=== PATIENT | female | born 1985 | race Caucasian/White ===

== ENCOUNTER 2021-10-14 11:12 | Emergency (ER) | payer OTHER, SELFPAY ==
--- NOTE | ~2021-10-14 | US_ITS ---
EXAMINATION: US ABDOMEN LIMITED CLINICAL INFORMATION: Epigastric pain. Abnormal liver function tests.. COMPARISON: None TECHNIQUE: Real-time imaging of the right upper quadrant abdominal viscera. FINDINGS: PANCREAS: Well visualized. LIVER: Normal. The liver is normal in size. The liver contour is normal. Parenchymal echogenicity is normal. No focal hepatic lesion. There is no intrahepatic biliary duct dilatation seen. GALLBLADDER: The gallbladder is upper normal in size. There are gallstones. The gallbladder wall is upper normal in thickness measuring 3 to 5 mm. There is no gallbladder wall edema. There is no pericholecystic fluid. The biomedical engineering technologist does not report that the patient is tender over the gallbladder. COMMON BILE DUCT: Normal in caliber measuring 0.5 cm in diameter. RIGHT KIDNEY: Normal. No hydronephrosis. No renal calculi or focal parenchymal lesions. The kidney measures 10 cm in maximum dimension. FREE FLUID: None. US/US abdomen limited IMPRESSION: Upper normal-size gallbladder and gallstones. Nonvisualization of the pancreas.
[2021-10-14 11:39] VITALS: BP 108/63; PULSE 75; RESP 18; TEMP 37; O2SAT 100; BMI 39.4
[2021-10-14 12:00] LABS: MANUAL DIFF FLAG NO
[2021-10-14 12:02] LABS: Basophils Percent Auto 0.3 % (0-2); Eosinophils Percent Auto 0.4 % (0-4); Hematocrit 38.4 % (37.0-47.0); Hemoglobin 12.4 g/dl (12.0-16.0); Imm Gran Abs Auto 0.04 X10*3/uL (0.00-0.03); Imm Gran Pct Auto 0.4 % (0.0-0.4); Lymphocytes Absolute Auto 1.4 X10*3/uL (1.2-4.9); Lymphocytes Percent Auto 13.7 % (20-40); Mean Corpuscular HGB Conc 32.3 g/dl (31.0-35.0); Mean Corpuscular Hemoglobin 26.7 pg (27.0-33.0); Mean Corpuscular Volume 82.6 fL (80.0-98.0); Mean Platelet Volume 11.4 fL (9.4-12.3); Monocytes Absolute Auto 0.6 X10*3/uL (0.1-1.2); Monocytes Percent Auto 5.8 % (2-11); Neutrophils Absolute Auto 7.9 x10*3/uL (2.0-8.3); Neutrophils Percent Auto 79.4 % (45-73); Platelet Count 249 X10*3/uL (160-400); Red Blood Count 4.65 X10*6/uL (4.20-5.50); Red Cell Distribution Width 13.9 % (11.0-16.0)
[2021-10-14 12:13] LABS: Appearance Urine HAZY; Glucose Urine UA NEG (NEG); Leukocyte Esterase Urine NEG (NEG); Nitrite Urine NEG (NEG); PH 5.5 (5.0-8.0); Specific Gravity - Urine >= 1.030 (1.005-1.025); Urine Blood NEG (NEG); Urine Ketones 5 MG/DL (NEG); Urine Protein NEG (NEG-TRACE)
[2021-10-14 12:14] LABS: Color Urine YELLOW; UPreg QC Valid YES; Urine Pregnancy NEGATIVE (NEGATIVE)
[2021-10-14 12:24] LABS: Alanine Aminotransferase 52 U/L (0-31); Albumin Level 4.1 g/dL (3.5-5.0); Alkaline Phosphatase 100 U/L (39-117); Anion Gap 11 (12-20); Aspartate Amino Transferase 55 U/L (5-31); Bilirubin Total 1.2 mg/dL (0.0-1.0); Blood Urea Nitrogen 9 mg/dL (9-16); Calcium 9.4 mg/dL (8.4-10.2); Carbon Dioxide 25 mmol/L (22-29); Chloride 108 mmol/L (96-108); Creatinine Clr Calc Pharmacy 109.7; Estimated Glomerular Filt Rate > 60; Glucose Random 89 mg/dL (60-115); Lipase 23 U/L (8-78); Potassium 3.7 mmol/L (3.3-5.1); Sodium 140 mmol/L (135-145); Total Protein 7.3 g/dL (6.5-8.0)
--- NOTE | 2021-10-14 12:29 | ED_ITS ---
HPI - Abdominal Pain General Chief Complaint: Abdominal Pain Stated Complaint: abd pain Time Seen by Provider: 10/14/21 12:24 Source: patient Mode of arrival: ambulatory Limitations: no limitations History of Present Illness HPI narrative: 35 y/o female with history of hypothyroidism presents to the ER with epigastric abdominal pain for the last 3 months. She reports intermittent nausea when the pain is severe but no vomiting or diarrhea. She reports nothing makes the pain worse or better it is mostly constant. Intermittently it wakes her up at night. She denies any radiation of the pain. She denies eating any spicy foods, using NSAIDs regularly, or alcohol use. No new medications. MD elicited complaint: abdominal pain Pertinent past history: none Onset (ago): month(s) (3) Pain Consistency: constant Location: epigastric Severity: severe Quality: aching, fullness and burning Radiation: none Migration to: no migration Exacerbating factors: nothing Relieving factors: nothing Associated symptoms: nausea Related Data Previous Rx's Medication Instructions Recorded pantoprazole 40 mg tablet,delayed 40 mg PO DAILY #30 tab 10/14/21 release (Protonix) Allergies Allergy/AdvReac Type Severity Reaction Status Date / Time No Known Allergies Allergy Verified 10/14/21 11:39 Review of Systems Review of Systems Constitutional: No Fever, No Chills ENT/Mouth: No sore throat, No Rhinorrhea, No Swallowing Difficulty Cardiovascular: No Chest Pain, No SOB Respiratory: No Cough, No Sputum, No Wheezing, No dyspnea Gastrointestinal: +Nausea, No Vomiting, No Diarrhea, + abdominal Pain, No Hematochezia, No Melena Genitourinary: No Dysuria, No Urinary Frequency, No Hematuria Musculoskeletal: No joint pain, No Myalgias Skin: No Skin Lesions, No rash Neuro: No Weakness, No Numbness, No Dizziness, No Headache Psych: + Anxiety/Panic Heme/Lymph: No Bruising, No Lymphadenopathy Physical Exam Verdana 4l Vital Signs: Verdana 4d Verdana 4d Vital Signs: Verdana 4d Verdana 4Bd Last Vital Signs Verdana 4d Recovery Auditor New 4d Recovery Auditor New 4d Temp 98.7 F 10/14/21 12:45 Recovery Auditor New 4d Pulse 81 10/14/21 12:45 Recovery Auditor New 4d Resp 20 10/14/21 12:45 BP 118/64 10/14/21 12:45 Pulse Ox 100 10/14/21 12:45 BMI result Body Mass Index 39.4 Appearance: Alert. Oriented X3. No acute distress. Eyes: Pupils equal, round and reactive to light. ENT: Pharynx normal. Neck: Normal inspection. Neck supple. CVS: Normal heart rate and rhythm. Pulses normal. Respiratory: No respiratory distress. Breath sounds normal. Abdomen: Soft with mild epigastric and RUQ tenderness, no rebound or guarding. +BS x4 Skin: Skin warm and dry. Normal skin color. Normal skin turgor. No rashes. Extremities: No lower extremity edema. Neuro: Oriented X 3. No motor deficit. No sensory deficit. Course Course Course Narrative: 35 y/o female presenting with epigastric abdominal pain x3 months. Labs showing some mild transaminitis and bilirubin 1.2, normal lipase. She has some RUQ tenderness. Will get RUQ U/S. Suspect gastritis vs PUD. No evidence of GI bleeding. Will give GI cocktail and reassess. Reevaluation(s) Reevaluation #1: Pain improved, patient sleeping. When awoken she reports her pain is resolved. Her ultrasound did show some gallbladder stones without any abnormal wall thickening. Her CBD is normal. Will refer to both General Surgery and GI. Will start on PPI and give diet for PUD/gastritis. Patient agrees with plan. Stable for d/c home. MDM - Abdominal Pain Lab Data Result diagrams: 10/14/21 11:54 10/14/21 11:54 Labs: Lab Results 10/14/21 10/14/21 10/14/21 Range/Units 11:54 11:54 11:56 WBC 10.0 (4.8-10.8) X10*3/uL RBC 4.65 (4.20-5.50) X10*6/uL Hgb 12.4 (12.0-16.0) g/dl Hct 38.4 (37.0-47.0) % MCV 82.6 (80.0-98.0) fL MCH 26.7 L (27.0-33.0) pg MCHC 32.3 (31.0-35.0) g/dl RDW 13.9 (11.0-16.0) % Plt Count 249 (160-400) X10*3/uL MPV 11.4 (9.4-12.3) fL Immature Gran % (Auto) 0.4 (0.0-0.4) % Neut % (Auto) 79.4 H (45-73) % Lymph % (Auto) 13.7 L (20-40) % [place] % (Auto) 5.8 (2-11) % Eos % (Auto) 0.4 (0-4) % Baso % (Auto) 0.3 (0-2) % Lymph # (Auto) 1.4 (1.2-4.9) X10*3/uL [place] # (Auto) 0.6 (0.1-1.2) X10*3/uL Eos # (Auto) 0.0 (0.0-0.4) X10*3/uL Baso # (Auto) 0.0 (0.0-0.2) X10*3/uL Abs Immat Gran (auto) 0.04 H (0.00-0.03) X10*3/uL Absolute Neuts (auto) 7.9 (2.0-8.3) x10*3/uL Absolute Nucleated RBC 0.000 (0.0-0.012) X10*3/uL Nucleated RBC % (auto) 0.0 (0.0-0.2) /100WBC Sodium 140 (135-145) mmol/L Potassium 3.7 (3.3-5.1) mmol/L Chloride 108 (96-108) mmol/L Carbon Dioxide 25 (22-29) mmol/L Anion Gap 11 L (12-20) BUN 9 (9-16) mg/dL Creatinine 0.85 (0.5-1.4) mg/dL Estim Creat Clear Calc 109.7 Estimated GFR > 60 Random Glucose 89 (60-115) mg/dL Calcium 9.4 (8.4-10.2) mg/dL Total Bilirubin 1.2 H (0.0-1.0) mg/dL AST 55 H (5-31) U/L ALT 52 H (0-31) U/L Alkaline Phosphatase 100 (39-117) U/L Total Protein 7.3 (6.5-8.0) g/dL Albumin 4.1 (3.5-5.0) g/dL Lipase 23 (8-78) U/L Urine Color Urine Appearance Urine pH (5.0-8.0) Ur Specific [place] (1.005-1.025) Urine Protein (NEG-TRACE) MG/DL Urine Glucose (UA) (NEG) MG/DL Urine Ketones (NEG) MG/DL Urine Blood (NEG) Urine Nitrite (NEG) Ur Leukocyte Esterase (NEG) Urine Test NEGATIVE (NEGATIVE) 10/14/21 Range/Units 11:56 WBC (4.8-10.8) X10*3/uL RBC (4.20-5.50) X10*6/uL Hgb (12.0-16.0) g/dl Hct (37.0-47.0) % MCV (80.0-98.0) fL MCH (27.0-33.0) pg MCHC (31.0-35.0) g/dl RDW (11.0-16.0) % Plt Count (160-400) X10*3/uL MPV (9.4-12.3) fL Immature Gran % (Auto) (0.0-0.4) % Neut % (Auto) (45-73) % Lymph % (Auto) (20-40) % [place] % (Auto) (2-11) % Eos % (Auto) (0-4) % Baso % (Auto) (0-2) % Lymph # (Auto) (1.2-4.9) X10*3/uL [place] # (Auto) (0.1-1.2) X10*3/uL Eos # (Auto) (0.0-0.4) X10*3/uL Baso # (Auto) (0.0-0.2) X10*3/uL Abs Immat Gran (auto) (0.00-0.03) X10*3/uL Absolute Neuts (auto) (2.0-8.3) x10*3/uL Absolute Nucleated RBC (0.0-0.012) X10*3/uL Nucleated RBC % (auto) (0.0-0.2) /100WBC Sodium (135-145) mmol/L Potassium (3.3-5.1) mmol/L Chloride (96-108) mmol/L Carbon Dioxide (22-29) mmol/L Anion Gap (12-20) BUN (9-16) mg/dL Creatinine (0.5-1.4) mg/dL Estim Creat Clear Calc Estimated GFR Random Glucose (60-115) mg/dL Calcium (8.4-10.2) mg/dL Total Bilirubin (0.0-1.0) mg/dL AST (5-31) U/L ALT (0-31) U/L Alkaline Phosphatase (39-117) U/L Total Protein (6.5-8.0) g/dL Albumin (3.5-5.0) g/dL Lipase (8-78) U/L Urine Color YELLOW Urine Appearance HAZY Urine pH 5.5 (5.0-8.0) Ur Specific [place] >= 1.030 H (1.005-1.025) Urine Protein NEG (NEG-TRACE) MG/DL Urine Glucose (UA) NEG (NEG) MG/DL Urine Ketones 5 (NEG) MG/DL Urine Blood NEG (NEG) Urine Nitrite NEG (NEG) Ur Leukocyte Esterase NEG (NEG) Urine Test (NEGATIVE) Discharge Plan Discharge Clinical Impression: Gastritis Patient Disposition: Home, Self-Care Instructions: Gastritis (DC), Gallstones (ED), Diet for Stomach Ulcers and Gastritis (ED) Additional Instructions: Take the prescribed medication each morning. Avoid acidic and spicy foods. Avoid large meals and eating right before bed. Take TUMS or Pepto Bismol as needed Follow up with GI and Surgery - name and numbers below If you develop new or worsening symptoms call 911 or come back to the ER for further evaluation. Prescriptions: New pantoprazole [Protonix] 40 mg tablet,delayed release (DR/EC) 40 mg PO DAILY Qty: 30 0RF Referrals: Patrick Judge MD [Physician] - 2 days (epigastric pain x3 months) Esteban Cabrera MD [Physician] - 1 week (gallstones, epigastric pain) Stand Alone Forms: Work/School Release Interventions: ED Discharge Assessment Last Done: 10/14/21 15:12 Discharge Date/Time: 10/14/21 15:13 [facility] Past Medical History Medical History (Updated 10/14/21 @ 14:47 by ASTER Gibbs) Thyroid activity decreased Social History Social History Advance Directives: No Advance Directives Information Provided: No
[2021-10-14 12:45] VITALS: BP 118/64; PULSE 81; RESP 20; TEMP 37.1; O2SAT 100
[2021-10-14] MEDS: PHENobarb/Hyoscy/Atropine/Scop 10 ML ELIXIR PO (12:59)
[2021-10-14] MEDS: Lidocaine HCl Viscous 2 % 15 ML SOLUTION MUCOUS MEM (12:59)
[2021-10-14] MEDS: Magnesium Hydrox/Alum Hydrox 30 ML ORAL.SUSP PO (12:59)
[2021-10-14] MEDS: Omeprazole 40 MG CAPSULE.DR PO (12:59)
== END 2021-10-14 15:13 | disposition home or self-care (01) ==
PROVIDERS: Emergency Provider Emergency Medicine Emergency Medical Services; PCP Internal Medicine
DX: K29.70 Gastritis, unspecified, without bleeding (principal); R10.9 Unspecified abdominal pain
CPT/HCPCS: 36415; 76705; 80053; 81003; 81025; 83690; 85025; 99284

== ENCOUNTER 2023-01-09 22:47 | Emergency (ER) | payer OTHER, SELFPAY ==
[2023-01-09 22:54] VITALS: BP 108/65; PULSE 90; RESP 18; TEMP 36.8; O2SAT 98; BMI 39.3
[2023-01-10 02:35] VITALS: BP 107/65; PULSE 78; RESP 14; TEMP 36.8; O2SAT 99
--- NOTE | 2023-01-10 02:58 | ED.ALLEREA ---
HPI - Allergic Reaction General Chief complaint: Allergic Reaction Stated complaint: hives Time Seen by Provider: 01/10/23 02:56 Source: patient Mode of arrival: ambulatory Limitations: no limitations History of Present Illness HPI narrative: no new medications, no new foods, no dew shampoo, or detergents, no recent illness. Itching and rash stared 2 days ago, goes away with benadryl. complaint: hives Onset (ago): hour(s) Symptoms: rash, itching and facial swelling Related Data Previous Rx's Medication Instructions Recorded pantoprazole 40 mg tablet,delayed 40 mg PO DAILY #30 tabs 10/14/21 release (Protonix) diphenhydramine HCl 25 mg capsule 25 mg PO Q6-8H PRN allergic 01/10/23 (Benadryl) reaction #30 caps prednisone 20 mg tablet 60 mg PO DAILY #12 tabs 01/10/23 Allergies Allergy/AdvReac Type Severity Reaction Status Date / Time No Known Allergies Allergy Verified 10/14/21 11:39 Review of Systems Review of Systems: Yes all other systems are reviewed and are negative Allergic/Immunologic: Comments: rash and itching PMFSH Past Medical History Medical History Thyroid activity decreased Social History Social History Advance Directives: No Advance Directives Information Provided: Yes Physical Exam ED Vital Signs: Vital Signs - 24 hr 01/09/23 22:54 01/10/23 02:35 Temperature 98.2 F 98.3 F Pulse Rate 90 78 Respiratory Rate 18 14 Blood Pressure 108/65 107/65 Pulse Oximetry 98 99 Oxygen Delivery Method Room Air Room Air BMI result Body Mass Index 39.3 Const General: healthy appearing Nutritional Appearance: average body habitus Orientation/consciousness: oriented to person and patient oriented x3 Limitations: no limitations HENMT Head: Yes normal to inspection Ears: external ears normal General nose exam: Normal external nose present Mouth: Normal oral and palatal mucosa present and oropharynx normal Throat: Yes posterior oropharynx normal Eyes General: appearance normal, both eyes and all related structures Neck Neck: Yes normal visual inspection Chest Chest palpation & inspection: normal inspection of the chest Resp Auscultation: clear to auscultation bilaterally Cardio Jugular venous distension: no JVD Rate: regular rate Rhythm: regular rhythm Heart sounds: S1 normal heart sound present and S2 normal heart sound present GI Inspection: Yes normal to inspection Palpation (GI): Soft to palpation, nontender and No hepatosplenomegaly present Auscultation: normal bowel sounds General: Yes no CVA tenderness Back/Spine/Pelvis Back: no CVA tenderness Skin Other: generalized hives Neuro General: oriented to person and patient oriented x3 Cranial nerves: Yes CN's II-XII intact bilaterally Motor exam (neuro): 5/5 motor strength present throughout Extrem General: Yes normal to inspection Psych Appearance: grossly normal Course Reevaluation(s) Reevaluation #1: patient with hives of unclear etiology Time: 03:06 Medical Decision Making Differential Diagnosis Differential Diagnoses: The differential diagnosis associated with the presentation includes (urticaria, allergic reaction, viral urticaria) Discharge Plan Discharge Clinical Impression: Allergic reaction, Urticaria Patient Disposition: Home, Self-Care Instructions: Urticaria (ED), General Allergic Reaction (ED) Prescriptions: New prednisone 20 mg tablet 60 mg PO DAILY Qty: 12 0RF diphenhydramine HCl [Benadryl] 25 mg capsule 25 mg PO Q6-8H PRN (Reason: allergic reaction) Qty: 30 0RF No Action pantoprazole [Protonix] 40 mg tablet,delayed release (DR/EC) 40 mg PO DAILY Qty: 30 0RF Referrals: Estrella Leon MD [Primary Care Provider] - 3 days
[2023-01-10] MEDS: predniSONE 20 MG TABLET 60 MG PO (03:31)
== END 2023-01-10 03:36 | disposition home or self-care (01) ==
PROVIDERS: Emergency Provider Emergency Medicine; PCP Internal Medicine
DX: L50.0 Allergic urticaria (principal)
CPT/HCPCS: 99283

== ENCOUNTER 2023-03-06 06:39 | Emergency (ER) | payer OTHER, SELFPAY ==
[2023-03-06 06:41] VITALS: BP 136/77; PULSE 83; RESP 16; TEMP 36; O2SAT 96
[2023-03-06 07:13] VITALS: BMI 40.5
[2023-03-06 07:29] LABS: IDNOW Serial# 08D9AD1C; Strep A Nucleic Acid Negative (Negative)
--- NOTE | 2023-03-06 08:18 | ED.GENADULT ---
HPI - General Adult General Chief complaint: General Medical Stated complaint: possible strep Time Seen by Provider: 03/06/23 08:10 Source: patient Mode of arrival: ambulatory Limitations: no limitations History of Present Illness HPI narrative: 37-year-old female presents to the ER for evaluation of possible strep throat. She states she developed sore throat yesterday with white patches in film on the back of her throat. She gargled with salt water a few times and slept most of the day. She states she woke up at midnight with worsening sore throat, painful swallowing. She has no other symptoms. No known sick contacts. No change in her voice, trouble handling secretions, fever, chills, abdominal pain. complaint: Sore throat Onset (ago): day(s) (1) Location: mouth Radiation: non-radiation Severity: moderate Exacerbating factors: other (Swallowing) Associated symptoms: denies other symptoms Treatments prior to arrival: none Related Data Previous Rx's Medication Instructions Recorded pantoprazole 40 mg tablet,delayed 40 mg PO DAILY #30 tabs 10/14/21 release (Protonix) diphenhydramine HCl 25 mg capsule 25 mg PO Q6-8H PRN allergic 01/10/23 (Benadryl) reaction #30 caps prednisone 20 mg tablet 60 mg PO DAILY #12 tabs 01/10/23 amoxicillin 875 mg-potassium 1 tab PO BID #14 tabs 03/06/23 clavulanate 125 mg tablet Allergies Allergy/AdvReac Type Severity Reaction Status Date / Time No Known Allergies Allergy Verified 03/06/23 07:16 Review of Systems Review of Systems: Yes all other systems are reviewed and are negative PMFSH Past Medical History Medical History Thyroid activity decreased Social History Social History Substance Use Type: Marijuana Physical Exam ED Vital Signs: Vital Signs - 24 hr 03/06/23 06:41 Temperature 96.8 F Pulse Rate 83 Respiratory Rate 16 Blood Pressure 136/77 Pulse Oximetry 96 Oxygen Delivery Method Room Air BMI result Body Mass Index 40.5 Appearance: Alert. Oriented X3. No acute distress. Head: normocephalic, atraumatic. Eyes: Pupils equal, round and reactive to light. ENT: Pharynx normal. + tonsillar swelling or exudates bilaterally, uvula midline. no voice changes. normal TM bilaterally Neck: Normal inspection. Neck supple. No cervical lymphadenopathy appreciated CVS: Normal heart rate and rhythm. Pulses normal. Respiratory: No respiratory distress. Breath sounds normal. Skin: Skin warm and dry. Normal skin color. Normal skin turgor. No rashes. Extremities: No lower extremity edema. No joint swelling. Neuro/psych: Oriented X 3. Grossly normal. Normal speech and cognition. Medical Decision Making Medical Decision Making [facility] Narrative: 37-year-old female presents to the ER for evaluation of possible sore throat. She has sore throat, painful swallowing, white patches on her throat. Her exam is consistent with strep pharyngitis. No evidence of peritonsillar abscess. Low suspicion for retropharyngeal abscess. She is nontoxic appearing with stable vital signs. Will treat her with antibiotics. She is stable for discharge home. Differential Diagnosis Differential Diagnoses: The differential diagnosis associated with the presentation includes strep, covid, flu, rsv, other viral syndrome, bronchitis, pneumonia, no evidence of peritonsillar abcsess or retropharyngeal abscess Lab Data [facility] Lab Attestation statement: I reviewed the patient's lab results. Strep negative however given physical exam findings will empirically treat Labs: Lab Results 03/06/23 Range/Units 07:14 S. pyogenes GrpA BRIGIDA Negative (Negative) External Record Review External record reviewed: Outpatient record and Prior outpatient labs Prescription Management I considered prescription management with: Pain Medication and Antibiotic Critical Care Time Critical Care Time Critical Care Time: No Discharge Plan Discharge Clinical Impression: Acute streptococcal pharyngitis Patient Disposition: Home, Self-Care Instructions: Strep Throat (DC) Additional Instructions: Take the prescribed antibiotic as directed. Complete the entire course and do not miss any doses. Use warm salt water gargles 3-4 times per day. Make sure drinking plenty of fluids. Take [id number] Motrin and Tylenol as needed for pain. Recommend [id number] Chloraseptic spray and/or Cepacol lozenges for sore throat. If you develop new or worsening symptoms call 911 or come back to the ER for further evaluation. Prescriptions: New amoxicillin-pot clavulanate 875-125 mg tablet 1 tab PO BID Qty: 14 0RF No Action pantoprazole [Protonix] 40 mg tablet,delayed release (DR/EC) 40 mg PO DAILY Qty: 30 0RF prednisone 20 mg tablet 60 mg PO DAILY Qty: 12 0RF diphenhydramine HCl [Benadryl] 25 mg capsule 25 mg PO Q6-8H PRN (Reason: allergic reaction) Qty: 30 0RF Referrals: Estrella Leon MD [Primary Care Provider] - Stand Alone Forms: Work/School Release
== END 2023-03-06 08:41 | disposition home or self-care (01) ==
PROVIDERS: Emergency Provider Student in an Organized Health Care Education/Training Program; PCP Internal Medicine
DX: J02.0 Streptococcal pharyngitis (principal); J02.8 Acute pharyngitis due to other specified organisms
CPT/HCPCS: 87651; 99283; 99284

== ENCOUNTER 2023-10-13 12:08 | Emergency (ER) | payer OTHER, SELFPAY ==
[2023-10-13 12:33] VITALS: BP 121/62; PULSE 90; RESP 16; TEMP 36.6; O2SAT 100; BMI 42.5
--- NOTE | 2023-10-13 12:33 | ED.GENADULT ---
[facility] - General Adult General Chief complaint: Allergic Reaction Stated complaint: ? Allergic Reaction Time Seen by Provider: 10/13/23 13:18 Source: patient, RN notes reviewed and old records reviewed Mode of arrival: ambulatory History of Present Illness [facility] narrative: 37-year-old female with no significant past medical history presenting to ED complaining of pruritic hives/rash and swollen eyes noted yesterday spontaneously. Admits took Benadryl yesterday with some relief then woke up this morning w/worsening symptoms. Admits to taking 25 mg of Benadryl this morning with improvement. Denies throat closing sensation, difficulty or inability to swallow, cough, SOB, new exposures/soaps/lotions/detergent, known tick or insect bites, new medication or travel Related Data Previous Rx's Medication Instructions Recorded pantoprazole 40 mg tablet,delayed 40 mg PO DAILY #30 tabs 10/14/21 release (Protonix) diphenhydramine HCl 25 mg capsule 25 mg PO Q6-8H PRN allergic 01/10/23 (Benadryl) reaction #30 caps prednisone 20 mg tablet 60 mg (3 x 20 mg) PO DAILY #12 tabs 01/10/23 amoxicillin 875 mg-potassium 1 tab PO BID #14 tabs 03/06/23 clavulanate 125 mg tablet cetirizine 10 mg capsule (Zyrtec) 10 mg PO DAILY PRN allergy 10/13/23 symptoms #14 caps diphenhydramine HCl 25 mg capsule 25 mg PO TID PRN allergic reaction 10/13/23 (Benadryl) #14 caps Allergies Allergy/AdvReac Type Severity Reaction Status Date / Time No Known Allergies Allergy Verified 03/06/23 07:16 Review of Systems Review of Systems: Constitutional: No Fever, No Chills ENT/Mouth: No Ear Pain, No Nasal Congestion, No Sinus Pain, No Hoarseness, No sore throat, No Rhinorrhea, No Swallowing Difficulty Cardiovascular: No Chest Pain, No SOB Respiratory: No Cough, No Sputum, No Wheezing Gastrointestinal: No Nausea, No Vomiting,No Abdominal pain Musculoskeletal: No joint pain, No Myalgias, No Joint Swelling Skin: No Skin Lesions, +rash Neuro: No Weakness Yes all other systems are reviewed and are negative Constitutional: Constitutional: Reports as per [facility] Past Medical History Attestation statement: The following information was validated with the patient. Source: old records reviewed Medical History Thyroid activity decreased Social History Social History Substance Use Type: Marijuana Advance Directives: No Advance Directives Information Provided: No Physical Exam ED Vital Signs: Vital Signs - 24 hr 10/13/23 12:33 10/13/23 13:51 Temperature 97.8 F 98.2 F Pulse Rate 90 83 Respiratory Rate 16 13 Blood Pressure 121/62 122/71 Pulse Oximetry 100 100 Oxygen Delivery Method Room Air Room Air BMI result Body Mass Index 42.5 Const General: cooperative, healthy appearing and no acute distress Orientation/consciousness: patient oriented x3 Limitations: no limitations HENMT Head: Yes normal to inspection and Yes atraumatic Ears: hearing grossly normal bilaterally General nose exam: Normal external nose present Face and sinus: Yes normal facial exam Mouth: Normal oral and palatal mucosa present and no drooling Throat: Yes posterior oropharynx normal, Yes tonsils normal, Yes uvula midline, No peritonsillar mass and No uvular edema Eyes General: appearance normal, both eyes and all related structures EOM: EOMs intact bilaterally Neck Neck: Yes normal visual inspection and Yes no meningeal signs Resp Other: Talking in complete sentences. Effort & Inspection: normal respiratory effort, not labored, no respiratory distress and no stridor Auscultation: clear to auscultation bilaterally and no wheezes Cardio Rate: regular rate Heart sounds: S1 normal heart sound present and S2 normal heart sound present GI Inspection: Yes normal to inspection Skin Other: + erythematous rash/hives noted to right lower abdomen, upper back, and groin area. No mucous membrane/palm/sole involvement. Wounds: no wounds Neuro General: patient oriented x3, tone normal and no meningeal signs Cranial nerves: Yes CN's II-XII intact bilaterally Gait exam (Neuro): Normal gait present Extrem General: Yes normal to inspection Course Course Course Narrative: This is an RME: Additional HPI, ROS, PE not included below will be deferred to primary provider. Patient is a 37-year-old female diffuse body itching, rash with small red bumps. Denies SOB, difficulty swallowing. Took Benadryl today without improvement. No known allergens or new exposures. Advised by PCP to come to ED Medications Administered Discontinued Medications Generic Name Dose Route Start Last Admin Trade Name Freq PRN Reason Stop Dose Admin Diphenhydramine HCl 25 mg 10/13/23 13:10/13/23 13:47 Diphenhydramine Hcl 50 Mg/Ml Vial IM 10/13/23 13:27 25 mg ONCE ONE Administration Loratadine 10 mg 10/13/23 13:10/13/23 13:46 Loratadine 10 Mg Tablet PO 10/13/23 13:27 10 mg ONCE ONE Administration Methylprednisolone Sodium Succinate 60 mg 10/13/23 13:10/13/23 13:47 Methylprednisolone Sod Succ 125 Mg/2 Ml Vial IM 10/13/23 13:27 60 mg ONCE ONE Administration Medical Decision Making Medical Decision Making MDM Narrative: 37-year-old female with no significant past medical history presenting to ED complaining of pruritic hives/rash and swollen eyes noted yesterday spontaneously. On exam vital signs stable, NAD, nontoxic appearing, physical exam as noted above with hives, no respiratory compromise or distress, lungs CTA. No evidence of anaphylaxis. Suspect urticaria/allergic reaction to unknown substance. Recommended close follow-up with highway maintenance technician for allergy testing Plan: IM Benadryl/Solu-Medrol, highway maintenance technician follow-up Please refer to course for remaining clinical decision making, interpretation of labs/imaging results, and discussions with consultants and/or family members. Differential Diagnosis Differential Diagnoses: The differential diagnosis associated with the presentation includes As above External Record Review External record reviewed: Inpatient record, Office record, Outpatient record, Prior outpatient labs, Prior outpatient radiology, Primary care record and Outside ED record Tests considered The following testing was considered but not selected: As above Discharge Plan Discharge Clinical Impression: Allergic reaction Patient Disposition: Home, Self-Care Instructions: General Allergic Reaction (ED), Allergy Testing (ED) Additional Instructions: Please follow-up with an highway maintenance technician. Please take Benadryl as needed for allergic reaction symptoms. You may also take Zyrtec or Claritin If symptoms persist or worsen, difficulty or inability to swallow, shortness of breath return to the ED immediately Prescriptions: New diphenhydramine HCl [Benadryl] 25 mg capsule 25 mg PO TID PRN (Reason: allergic reaction) Qty: 14 0RF Zyrtec 10 mg capsule 10 mg PO DAILY PRN (Reason: allergy symptoms) Qty: 14 0RF No Action pantoprazole [Protonix] 40 mg tablet,delayed release (DR/EC) 40 mg PO DAILY Qty: 30 0RF amoxicillin-pot clavulanate 875-125 mg tablet 1 tab PO BID Qty: 14 0RF prednisone 20 mg tablet 60 mg PO DAILY Qty: 12 0RF diphenhydramine HCl [Benadryl] 25 mg capsule 25 mg PO Q6-8H PRN (Reason: allergic reaction) Qty: 30 0RF Referrals: Navneet Acosta MD [Physician] - Seth Cheema DO [Physician] - Bruna Millan MD [Physician] - Gerry Nelson PA-C [Physician [employer]] - Keyur Pederson MD [Physician] - Stand Alone Forms: Work/School Release Interventions: ED Discharge Assessment Last Done: 10/13/23 14:47 Discharge Date/Time: 10/13/23 14:48
[2023-10-13] MEDS: Loratadine 10 MG TABLET PO (13:46)
[2023-10-13] MEDS: diphenhydrAMINE HCL 50 MG/ML VIAL 25 MG IM (13:47)
[2023-10-13] MEDS: methylPREDNISolone Sod Succ 125 MG/2 ML VIAL 60 MG IM (13:47)
[2023-10-13 13:51] VITALS: BP 122/71; PULSE 83; RESP 13; TEMP 36.8; O2SAT 100
--- NOTE | 2023-10-13 13:51 | PC.NURSE ---
pt medicated per MAR.
--- NOTE | 2023-10-13 14:47 | PC.NURSE ---
pt notes improvement in itching post medication.
== END 2023-10-13 14:48 | disposition home or self-care (01) ==
PROVIDERS: Emergency Provider Emergency Medicine; PCP Internal Medicine
DX: L50.9 Urticaria, unspecified (principal); T78.40XA Allergy, unspecified, initial encounter; X58.XXXA Exposure to other specified factors, initial encounter
CPT/HCPCS: 96372; 99282; 99284; J1200; J2930